=== PATIENT | female | born 1940 | race Caucasian/White ===

== ENCOUNTER 2021-07-26 12:12 | Emergency (ER) | payer MEDICARE, OTHER ==
[2021-07-26 13:27] LABS: HEMOGLOBIN 14.7 gm/dl (12.3-15.3); RED BLOOD COUNT 4.9 M/UL (4.00-5.10)
[2021-07-26 14:17] LABS: BUN/CREATININE RATIO 19 (0-10)
== END 2021-07-26 15:12 | disposition home or self-care (01) ==
LOC: ER1 12:12 → CDU 14:29
PROVIDERS: Physician Assistant
DX: U07.1 COVID-19 (principal); E86.0 Dehydration; I12.9 Hypertensive chronic kidney disease with stage 1 through stage 4 chronic kidney disease, or unspecified chronic kidney disease; N17.9 Acute kidney failure, unspecified; N18.30 Chronic kidney disease, stage 3 unspecified; Z88.5 Allergy status to narcotic agent
CPT/HCPCS: 36600; 71045; 80053; 81001; 82550; 82553; 82803; 83874; 84484; 85025; 86140; 87086; 93005; 99285; J7030

== ENCOUNTER → 2022-02-17 | Outpatient (CLI) | payer MEDICARE, OTHER | LOC: US 09:30 | PROVIDERS: Internal Medicine Nephrology | DX: N28.1 Cyst of kidney, acquired (principal); N18.30 Chronic kidney disease, stage 3 unspecified | CPT/HCPCS: 36415; 80053; 82570; 84156 ==

== ENCOUNTER 2022-03-14 13:33 | Emergency (ER) | payer MEDICARE, OTHER ==
[2022-03-14 15:07] LABS: HEMOGLOBIN 12.3 gm/dl (12.3-15.3); RED BLOOD COUNT 4.02 M/UL (4.00-5.10); WHITE BLOOD COUNT 6.2 K/UL (4.5-11.0)
== END 2022-03-14 18:26 | disposition home or self-care (01) ==
LOC: ER1 13:33
PROVIDERS: Emergency Medicine
DX: R07.89 Other chest pain (principal); E78.5 Hyperlipidemia, unspecified; I10 Essential (primary) hypertension
CPT/HCPCS: 71045; 80053; 82550; 82553; 83690; 84484; 85025; 93005; 99285